=== PATIENT | male | born 1970 | race Two or more races ===

== ENCOUNTER 2017-08-28 20:16 | Emergency (ER) | payer BC, MEDICAID ==
[~2017-08-28] VITALS: Ht 167.6 cm; Wt 81.6 kg
[2017-08-28 20:34] VITALS: BP 164/107
== END 2017-08-29 00:34 | disposition left against medical advice (07) ==
LOC: EDBD 20:16 → ER 20:26
DX: I10 Essential (primary) hypertension (principal); Z53.21 Procedure and treatment not carried out due to patient leaving prior to being seen by health care provider
CPT/HCPCS: 93005